=== PATIENT | female | born 1995 | race Caucasian/White ===

== ENCOUNTER 2018-12-16 07:04 | Inpatient (IN) | payer OTHER ==
[~2018-12-16] VITALS: Ht 154.9 cm; Wt 97.1 kg
[2018-12-16] MEDS ORDERED: PRENATAL CAPLE1 EAC1 PO (08:14)
== END 2018-12-18 12:31 | DRG 807 ==
LOC: LDR 07:04 → OB/GYN 07:04 → LDR 10:09 → OB/GYN 11:55
PROVIDERS: ADMIT Obstetrics & Gynecology
PROC: 10E0XZZ Delivery of Products of Conception, External Approach (ICD-10-PCS; principal; 2018-12-17)
PROC: 4A1HXFZ Monitoring of Products of Conception, Cardiac Rhythm, External Approach (ICD-10-PCS; 2018-12-17)
PROC: 0UQGXZZ Repair Vagina, External Approach (ICD-10-PCS; 2018-12-17)
DX: O71.4 Obstetric high vaginal laceration alone (principal); Z37.0 Single live birth; Z3A.38 38 weeks gestation of pregnancy

== ENCOUNTER 2022-09-11 16:50 | Inpatient (IN) | payer OTHER ==
[~2022-09-11] VITALS: Ht 154.9 cm; Wt 99.8 kg
[~2022-09-11 16:50] MED LIST: PRENATAL CAPLE1 EAC1 PO
== END 2022-09-13 18:15 | disposition home or self-care (01) | DRG 807 ==
LOC: LDR 16:50 → OB/GYN 18:25
PROVIDERS: ADMIT Obstetrics & Gynecology; ATTEND Obstetrics & Gynecology
PROC: 10E0XZZ Delivery of Products of Conception, External Approach (ICD-10-PCS; principal; 2022-09-11)
PROC: 4A1HXCZ Monitoring of Products of Conception, Cardiac Rate, External Approach (ICD-10-PCS; 2022-09-11)
DX: O60.14X0 Preterm labor third trimester with preterm delivery third trimester, not applicable or unspecified (principal); Z37.0 Single live birth; Z3A.35 35 weeks gestation of pregnancy; Z20.822 Contact with and (suspected) exposure to COVID-19